=== PATIENT | male | born 2000 | race Caucasian/White ===

== ENCOUNTER 2019-04-27 12:11 | Emergency (ER) | payer OTHER, SELFPAY ==
[2019-04-27 12:22] VITALS: BP 120/74; PULSE 83; RESP 16; TEMP 36.5; O2SAT 99
[2019-04-27 12:30] VITALS: BP 132/66; PULSE 83; RESP 16; TEMP 36.5; O2SAT 99
[2019-04-27 13:04] VITALS: BP 138/95; PULSE 91; O2SAT 96
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
--- NOTE | 2019-04-27 13:14 | DI.RAD.S_ITS ---
PROCEDURE: XR FOOT RT MIN 3V INDICATIONS: Medial arch pain TECHNIQUE: 3 views of the foot were acquired. COMPARISON: None. FINDINGS: Bones: No acute or displaced fractures are present. No dislocations are evident. Elongation involving the base of the 5th metatarsal probably is related to previous healed injury. There are mild degenerative changes involving the 1st tarsometatarsal and metatarsophalangeal joints. Soft tissues: No tibiotalar joint effusion. There may be soft tissue swelling of the foot. IMPRESSION: No acute fractures of the foot are appreciated. Dictated by: Sathya Muñiz M.D. on 04/27/2019 at 13:12 Approved by: Sathya Muñiz M.D. on 04/27/2019 at 13:13
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
[2019-04-27 13:23] LABS: Add Manual Diff / Slide Review NO; Basophils Absolute Auto 100 /uL (0-100); Basophils Percent Auto 0.7 % (0-2); Eosinophils Absolute Auto 200 /uL (0-450); Eosinophils Percent Auto 1.9 % (2-4); Hemoglobin 16.7 g/dL (13.5-17.5); Lymphocytes Absolute Auto 2200 /uL (1100-4500); Lymphocytes Percent Auto 26.1 % (25-40); Mean Corpuscular HGB Conc 34.9 % (30-36); Mean Corpuscular Hemoglobin 29.5 PG (26-34); Mean Corpuscular Volume 84.7 fL (80-100); Monocytes Absolute Auto 600 /uL (0-900); Monocytes Percent Auto 7.2 % (3-14); Neutrophils Absolute Auto 5300 /uL (1500-7000); Neutrophils Percent Auto 64.1 % (50-75); Platelet Count 354 X10^3/uL (150-400); Red Blood Cell Count 5.67 X10^6/uL (4.5-5.9); Red Cell Distribution Width 12.9 % (11.6-14.8); White Blood Cell Count 8.3 X10^3/uL (4.5-11.0)
[2019-04-27 13:34] LABS: Alanine Aminotransferase 98 IU/L (<50); Albumin 5.1 g/dL (3.5-5.0); Albumin Globulin Ratio 1.7 (1.0-2.8); Alkaline Phosphatase 60 U/L (38-126); Aspartate Aminotransferase 58 IU/L (17-59); BUN Creatinine Ratio 12.9 (6-22); Bilirubin Total 0.6 mg/dL (0.2-1.3); Blood Urea Nitrogen 9 mg/dL (9-20); Calcium 9.5 mg/dL (8.4-10.2); Carbon Dioxide 26 mmol/L (22-32); Chloride 103 mmol/L (98-107); Estimated Glomerular Filt Rate > 60.0 mL/min (>60); Glucose 95 mg/dL (70-100); HEMOLYSIS 16 (0-50); Potassium 4.2 mmol/L (3.4-5.1); Sodium 143 mmol/L (137-145); Total Protein 8.1 g/dL (6.3-8.2)
[2019-04-27 13:45] VITALS: BP 132/78; PULSE 86; RESP 16; O2SAT 99
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
[2019-04-27 14:00] VITALS: BP 111/75; PULSE 87; RESP 18; O2SAT 99
[2019-04-27 14:31] VITALS: BP 119/69; PULSE 104; RESP 16; O2SAT 100
== END 2019-04-27 14:56 | disposition home or self-care (01) ==
PROVIDERS: Emergency Provider Nurse Practitioner
DX: K52.9 Noninfective gastroenteritis and colitis, unspecified (principal); M94.0 Chondrocostal junction syndrome [Tietze]; V44.5XXA Car driver injured in collision with heavy transport vehicle or bus in traffic accident, initial encounter
CPT/HCPCS: 71046; 73630; 74177; 80053; 85025; 99283; 99285; Q9967